=== PATIENT | female | born 1960 | race Caucasian/White ===

== ENCOUNTER 2021-06-10 13:29 | Outpatient (CLI) | payer BC ==
[2021-06-10 14:24] LABS: #Monocytes 0.3 10x3/uL (0.0-1.1); #Neutrophils 1.7 10x3/uL (1.5-8.4); %Basophils 0.8 % (0.0-2.0); %Eosinophils 1.1 % (0.0-6.0); %Lymphocytes 46.3 % (18.0-47.0); %Monocytes 7.6 % (0.0-10.0); %Neutrophils 43.9 % (40.0-75.0); Hemoglobin 12.9 g/dL (12.0-15.5); Mean Corpuscular HGB CONC 32.5 g/dL (32.0-36.0); Mean Corpuscular Hemoglobin 31.2 pg (27.0-33.0); Mean Corpuscular Volume 95.9 fl (81.6-98.3); Mean Platelet Volume 9.5 fl (7.4-10.4); Platelet Count 321 10x3/uL (150-450); RBC Distribution Width 12.7 % (11.5-14.5); Red Blood Cell (RBC) Count 4.14 10x6/uL (3.90-5.03); White Blood Cell (WBC) Count 3.8 10x3/uL (3.5-10.5)
[2021-06-10 14:32] LABS: ALT (SGPT) 20 U/L (8-55); AST (SGOT) 20 U/L (5-34); Albumin 4.8 g/dL (3.5-5.0); Alkaline Phosphatase 103 U/L (40-110); Anion Gap 13 mmol/L (10-20); BUN (Urea Nitrogen) 9 mg/dL (9.8-20.1); Bilirubin, Total 0.5 mg/dL (0.2-1.2); Calc. Creatinine Clearance 0 mL/min (70-130); Calcium 9.7 mg/dL (7.8-10.44); Carbon Dioxide 28 mmol/L (22-29); Chloride 103 mmol/L (98-107); Globulin 2.9 g/dL (2.4-3.5); Glucose 98 mg/dL (70-105); Protein, Total 7.7 g/dL (6.0-8.3); Sodium 140 mmol/L (136-145)
[2021-06-11 01:30] LABS: SARS-CoV-2 PCR by NAA Not Detected (NotDetected)
== END 2021-06-10 13:30 | disposition home or self-care (01) ==
LOC: LABBT 13:29
PROVIDERS: ATTEND Surgery
DX: Z01.818 Encounter for other preprocedural examination (principal); K64.9 Unspecified hemorrhoids; Z20.822 Contact with and (suspected) exposure to COVID-19
CPT/HCPCS: 80053; 85025; 93005; 93010; U0003; U0005

== ENCOUNTER 2021-06-13 06:40 | Day surgery (SDC) | payer BC ==
[2021-06-11 11:39] VITALS: BMI 32.3
[2021-06-13] MEDS ORDERED: Levofloxacin 500 mg/D5W 100 ml Premix Bag ONE (09:04)
[2021-06-13] MEDS ORDERED: Midazolam HCl 2 mg/2 ml Vial ONE ×2 (09:09→09:26)
[2021-06-13] MEDS ORDERED: Lidocaine 1% w/Epinephrine 1:100K 20 ML VIAL ONE (09:18)
[2021-06-13] MEDS ORDERED: Bacitracin Zinc Ointment 30 gm TUBE ONE (09:18)
[2021-06-13] MEDS ORDERED: Bupivacaine 0.25% HCL 30 ML VIAL ONE (09:18)
[2021-06-13] MEDS ORDERED: Fentanyl 100 MCG/2 ML VIAL ONE ×2 (09:26→10:41)
[2021-06-13] MEDS ORDERED: Lidocaine 1% PF 5 ML VIAL ONE (09:37)
[2021-06-13] MEDS ORDERED: Succinylcholine 200 MG/10 ml SYRINGE FS ONE (09:37)
[2021-06-13] MEDS ORDERED: PROPOFOL 200 MG/20 ML VIAL ONE (09:37)
[2021-06-13] MEDS ORDERED: Glycopyrrolate 0.2 MG/ML 5 ML SYRINGE ONE (09:37)
[2021-06-13] MEDS ORDERED: Ondansetron PF 4 MG/2 ML Vial ONE (09:37)
[2021-06-13] MEDS ORDERED: Rocuronium Bromide 10 MG/ML (10ML VIAL) ONE (09:37)
[2021-06-13] MEDS ORDERED: Dexamethasone 20 MG/5 ML VIAL ONE (09:37)
[2021-06-13] MEDS ORDERED: HYDROcodone/Acetaminophen 5/325 mg Tablet ONE (11:13)
== END 2021-06-13 12:45 | disposition home or self-care (01) ==
LOC: SDC 06:40
PROVIDERS: ATTEND Surgery
PROC: 06BY3ZC Excision of Hemorrhoidal Plexus, Percutaneous Approach (ICD-10-PCS; principal; 2021-06-13)
DX: K64.2 Third degree hemorrhoids (principal); I10 Essential (primary) hypertension; E03.9 Hypothyroidism, unspecified; Z79.899 Other long term (current) drug therapy; Z88.1 Allergy status to other antibiotic agents; Z91.018 Allergy to other foods
CPT/HCPCS: 88304; J1100; J1956; J2250; J2405; J2704; J3010; S0020